=== PATIENT | male | born 1995 | race Caucasian/White ===

== ENCOUNTER 2018-10-17 13:29 | Emergency (ER) | payer MEDICAID, OTHER ==
--- NOTE | 2018-10-17 13:52 | ED Physician Documentation ---
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 He is currently PCSing To [place] and is on leave right now. The last 4 years he has had intermittent very focal dorsal left wrist pain that is worse with a lot of motion. Sometimes it does not bother him but sometimes it does. He was told at some point that that may be a ganglion cyst. It has been worse over the last 2 weeks. There was no recent injury.) Review of Systems Constitutional: reports: Reviewed and negative Cardiac: reports: Reviewed and negative Respiratory: reports: Reviewed and negative PD PAST MEDICAL HISTORY - Past Medical History Past Medical History: No Cardiovascular: None Respiratory: None Neuro: None Endocrine/Autoimmune: None GI: None : None HEENT: None Psych: None Musculoskeletal: None Derm: None - Past Surgical History Past Surgical History: Yes General: Other Ortho: Other - Present Medications Home Medications: Ambulatory Orders Medication Instructions Recorded Confirmed Ibuprofen [Motrin] 800 mg PO Q8H PRN #30 tablet 10/17/18 - Allergies Allergies/Adverse Reactions: Allergies Allergy/AdvReac Type Severity Reaction Status Date / Time No Known Drug Allergies Allergy Verified 10/17/18 13:36 - Social History Does the pt smoke?: No Smoking Status: Never smoker Does the pt drink ETOH?: No Does the pt have substance abuse?: No - Immunizations Immunizations are current?: Yes - POLST Patient has POLST: No PD ED PE NORMAL - Vitals Vital signs reviewed: Yes - General General: Alert and oriented X 3, No acute distress - Extremities Extremities: Other (He is a small but tender ganglion cyst over the dorsal wrist without limited range of motion or signs of infection.) - Neuro Neuro: Alert and oriented X 3, Normal speech Results - Vitals Vitals: Vital Signs - 24 hr 10/17/18 13:34 Temperature 36.6 C Heart Rate 61 Respiratory 18 Rate Blood Pressure 144/86 H O2 Saturation 98 Oxygen O2 Source Room air Departure - Departure Disposition: 01 Home, Self Care Clinical Impression: Ganglion, left wrist Condition: Good Record reviewed to determine appropriate education?: Yes Instructions: ED Cyst Ganglion Prescriptions: Ibuprofen [Motrin] 800 mg PO Q8H PRN #30 tablet PRN Reason: PAIN &/OR FEVER Comments: Wear the splint as needed for comfort. [place] discuss referral to a hand surgeon for definitive treatment. Your blood pressure was elevated today on check into the emergency department. This does not mean that you have hypertension, it is a common phenomenon to come to the emergency department and have elevated blood pressure. I recommend that you see your primary care physician within the week to have it rechecked when you are feeling better.
[2018-10-17 14:03] VITALS: BP 131/74
== END 2018-10-17 14:04 | disposition home or self-care (01) ==
LOC: ED 13:29
DX: M67.431 Ganglion, right wrist (principal); R03.0 Elevated blood-pressure reading, without diagnosis of hypertension
CPT/HCPCS: 99283